=== PATIENT | male | born 1985 | race Caucasian/White ===

== ENCOUNTER 2017-07-29 08:32 | Emergency (ER) | payer OTHER ==
[~2017-07-29] VITALS: Ht 177.8 cm; Wt 74.0 kg
[~2017-07-29 08:32] MED LIST: CLAR10TA7 PO; EPIP0.3I IM; FISH100020 PO; MEDR4PAK3 PO; MULT1TAB46 PO
[2017-07-29 08:37] VITALS: BP 149/74; PULSE 71; RESP 16; TEMP 97.3; O2SAT 99
[2017-07-29] MEDS ORDERED: FEXO1TAB97 PO (08:50)
[2017-07-29] MEDS ORDERED: FAMOTIDINE 20 MG/2 ML VIAL IV PUSH STA (08:53)
[2017-07-29] MEDS ORDERED: SODIUM CHLOR 0.9% 1000 ML INJ 1,000 ML IV ONE (08:53)
[2017-07-29 08:59] VITALS: O2SAT 98
[2017-07-29] MEDS ORDERED: SODIUM CHLORIDE 0.9% FLUSH 10 ML FLUSH IVF PRN (09:00)
[2017-07-29] MEDS ORDERED: ONDANSETRON HCL 4 MG/2 ML VIAL IV PUSH ONE (09:00)
--- NOTE | 2017-07-29 09:08 | PD ---
HPI Chief Complaint: GI Complaint Time Seen by Provider: 08:41 Travel History International Travel<30 days: No Contact w/Intl Traveler<30days: No Traveled to known affect area: No History of Present Illness HPI The patient is a 32-year-old male who presents to the emergency department for diarrhea. The patient is a 3 day history of diarrhea which she describes as loose, watery, without any visible blood. The diarrhea has been persistent for the last 3 days, he will go approximately 1-2 times per hour. He notes intermittent abdominal cramping but denies any acute abdominal pain. However, one hour prior to arrival he developed mild epigastric discomfort which is nonradiating. The patient denies any recent international travel, drinking well water, recent hospitalizations, or recent antibiotic use. The patient denies any previous history of C. difficile. The patient does state his son had similar symptoms 1 week ago where he had diarrhea for one day which resolved. He denies any nausea or vomiting. Previous abdominal surgeries include umbilical hernia repair. He denies any associated fever, chills, sweats , or cough. Symptoms are mild to moderate, there are no current alleviating or exacerbating factors. 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 PFSH Past Medical History Cancer: No Diabetes: No Diminished Hearing: No Hepatitis: No Hiatal Hernia: No Hypertension: Yes Medical other: Yes (ALLIGIC UTICARIA) Immunizations Current: No Thyroid Disease: No Tetanus Vaccination: Never Vaccinated Influenza Vaccination: No Past Surgical History Abdominal Surgery: Yes (UMBILICAL HERNIA REPAIR) Other Surgery: No Social History Alcohol Use: Yes (SOCIAL) Tobacco Use: No Substance Use: No Allergies-Medications (Allergen,Severity, Reaction): Coded Allergies: No Known Allergies (Verified , 07/29/17) Reported Meds & Prescriptions Reported Meds & Active Scripts Active Reported Elo-D 24 Hour Allergy (Fexofenadine-Pseudoephedrine ER 24 HR) 180-240 Reshma 1 Tab PO DAILY Review of Systems Except as stated in HPI: all other systems reviewed are Neg General / Constitutional: No: Fever Cardiovascular: No: Chest Pain or Discomfort Respiratory: No: Shortness of Breath Gastrointestinal: Positive: Diarrhea, Abdominal Pain (epigastric discomfort), No: Nausea, Vomiting Musculoskeletal: No: Myalgias, Arthralgias Skin: Positive Other (history of urticaria), No Rash Physical Exam Narrative GENERAL: Awake, alert, pleasant 32-year-old male who appears his stated age and is in no acute respiratory distress. SKIN: Focused skin assessment warm/dry. HEAD: Atraumatic. Normocephalic. EYES: Pupils equal and round. No scleral icterus. No injection or drainage. ENT: No nasal bleeding or discharge. Mucous membranes pink and moist. NECK: Trachea midline. No JVD. CARDIOVASCULAR: Regular rate and rhythm. No murmur appreciated. RESPIRATORY: No accessory muscle use. Clear to auscultation. Breath sounds equal bilaterally. GASTROINTESTINAL: Abdomen soft, minimal epigastric tenderness, no rebound tenderness, guarding, rigidity. No left lower quadrant tenderness. MUSCULOSKELETAL: No obvious deformities. No clubbing. No cyanosis. No edema. NEUROLOGICAL: Awake and alert. No obvious cranial nerve deficits. Motor grossly within normal limits. Normal speech. PSYCHIATRIC: Appropriate mood and affect; insight and judgment normal. Data Data Last Documented VS Vital Signs Date Time Temp Pulse Resp B/P (MAP) Pulse Ox O2 Delivery O2 Flow Rate FiO2 07/29/17 08:59 98 Room Air 07/29/17 08:37 97.3 71 16 149/74 (99) Orders Orders Complete Blood Count With Diff (07/29/17 08:53) Comprehensive Metabolic Panel (07/29/17 08:53) Lipase (07/29/17 08:53) Iv Access Insert/Monitor (07/29/17 08:53) Ecg Monitoring (07/29/17 08:53) Oximetry (07/29/17 08:53) Ondansetron Inj (Zofran Inj) (07/29/17 09:00) Sodium Chlor 0.9% 1000 Ml Inj (Ns 1000 M (07/29/17 08:53) Sodium Chloride 0.9% Flush (Ns Flush) (07/29/17 09:00) C Diff Toxin Pcr (07/29/17 08:53) Famotidine Inj (Pepcid Inj) (07/29/17 08:53) Chest, Single Ap (07/29/17 ) Labs Laboratory Tests Test 07/29/17 09:15 White Blood Count 11.6 TH/MM3 Red Blood Count 5.56 MIL/MM3 Hemoglobin 15.5 GM/DL Hematocrit 46.7 % Mean Corpuscular Volume 84.0 FL Mean Corpuscular Hemoglobin 27.9 PG Mean Corpuscular Hemoglobin Concent 33.2 % Red Cell Distribution Width 12.6 % Platelet Count 231 TH/MM3 Mean Platelet Volume 8.0 FL Neutrophils (%) (Auto) 79.4 % Lymphocytes (%) (Auto) 10.3 % Monocytes (%) (Auto) 7.6 % Eosinophils (%) (Auto) 1.5 % Basophils (%) (Auto) 1.2 % Neutrophils # (Auto) 9.2 TH/MM3 Lymphocytes # (Auto) 1.2 TH/MM3 Monocytes # (Auto) 0.9 TH/MM3 Eosinophils # (Auto) 0.2 TH/MM3 Basophils # (Auto) 0.1 TH/MM3 CBC Comment DIFF FINAL Differential Comment Blood Urea Nitrogen 9 MG/DL Creatinine 0.92 MG/DL Random Glucose 88 MG/DL Total Protein 7.6 GM/DL Albumin 3.8 GM/DL Calcium Level 8.9 MG/DL Alkaline Phosphatase 90 U/L Aspartate Amino Transf (AST/SGOT) 24 U/L Alanine Aminotransferase (ALT/SGPT) 25 U/L Total Bilirubin 0.5 MG/DL Sodium Level 135 MEQ/L Potassium Level 3.8 MEQ/L Chloride Level 101 MEQ/L Carbon Dioxide Level 26.3 MEQ/L Anion Gap 8 MEQ/L Estimat Glomerular Filtration Rate 95 ML/MIN Lipase 117 U/L MDM Medical Decision Making Medical Screen Exam Complete: Yes Emergency Medical Condition: Yes Medical Record Reviewed: Yes Interpretation(s) Chest x-ray reveals no acute cardiopulmonary findings Laboratory Tests Test 07/29/17 09:15 White Blood Count 11.6 TH/MM3 Red Blood Count 5.56 MIL/MM3 Hemoglobin 15.5 GM/DL Hematocrit 46.7 % Mean Corpuscular Volume 84.0 FL Mean Corpuscular Hemoglobin 27.9 PG Mean Corpuscular Hemoglobin Concent 33.2 % Red Cell Distribution Width 12.6 % Platelet Count 231 TH/MM3 Mean Platelet Volume 8.0 FL Neutrophils (%) (Auto) 79.4 % Lymphocytes (%) (Auto) 10.3 % Monocytes (%) (Auto) 7.6 % Eosinophils (%) (Auto) 1.5 % Basophils (%) (Auto) 1.2 % Neutrophils # (Auto) 9.2 TH/MM3 Lymphocytes # (Auto) 1.2 TH/MM3 Monocytes # (Auto) 0.9 TH/MM3 Eosinophils # (Auto) 0.2 TH/MM3 Basophils # (Auto) 0.1 TH/MM3 CBC Comment DIFF FINAL Differential Comment Blood Urea Nitrogen 9 MG/DL Creatinine 0.92 MG/DL Random Glucose 88 MG/DL Total Protein 7.6 GM/DL Albumin 3.8 GM/DL Calcium Level 8.9 MG/DL Alkaline Phosphatase 90 U/L Aspartate Amino Transf (AST/SGOT) 24 U/L Alanine Aminotransferase (ALT/SGPT) 25 U/L Total Bilirubin 0.5 MG/DL Sodium Level 135 MEQ/L Potassium Level 3.8 MEQ/L Chloride Level 101 MEQ/L Carbon Dioxide Level 26.3 MEQ/L Anion Gap 8 MEQ/L Estimat Glomerular Filtration Rate 95 ML/MIN Lipase 117 U/L Differential Diagnosis Differential diagnosis includes enteritis, colitis, gastroenteritis, infectious diarrhea, inflammatory diarrhea, IBD, IBS, C. difficile, viral syndrome, food poisoning. Narrative Course IV was established, labs are drawn and sent, and the patient was placed on cardiac telemetry monitoring and continuous pulse oximetry monitoring. The patient was administered Zofran, Pepcid, and IV fluids. C. difficile PCR was ordered. However, the patient had no further diarrhea in the emergency department therefore, the C. difficile PCR was not sent to lab. The patient had no further diarrhea in the emergency department. LFTs and lipase are unremarkable, no evidence of end organ damage or hepatitis. The patient is advised to have a regular diet, plenty fluids to stay hydrated, to follow-up with his primary physician. Return if symptoms worsen or progress. Diagnosis Primary Impression: Diarrhea Qualified Codes: R19.7 - Diarrhea, unspecified Patient Instructions: General Instructions Additional Instructions: Medications as directed. Follow-up with your primary physician. Return if symptoms worsen or progress. Disposition: 01 DISCHARGE HOME Condition: Stable Dwight Villalta MD Jul 29, 2017 09:08
[2017-07-29 09:24] LABS: AUTOMATED NEUTROPHIL # 9.2 TH/MM3 (1.8-7.7); BASOPHIL # 0.1 TH/MM3 (0-0.2); BASOPHIL % 1.2 % (0.0-2.0); EOSINOPHIL # 0.2 TH/MM3 (0-0.4); EOSINOPHIL % 1.5 % (0.0-4.0); HEMATOCRIT 46.7 % (39.0-51.0); LYMPH % 10.3 % (9.0-44.0); LYMPHOCYTE # 1.2 TH/MM3 (1.0-4.8); MEAN CORPUSCULAR HEMOGLOBIN 27.9 PG (27.0-34.0); MEAN CORPUSCULAR HGB CONC 33.2 % (32.0-36.0); MONO % 7.6 % (0.0-8.0); NEUT % 79.4 % (16.0-70.0); PLATELET COUNT 231 TH/MM3 (150-450); RED BLOOD COUNT 5.56 MIL/MM3 (4.50-5.90); RED CELL DISTRIBUTION WIDTH 12.6 % (11.6-17.2); WHITE BLOOD COUNT 11.6 TH/MM3 (4.0-11.0)
[2017-07-29 09:36] LABS: HEMO FLAGS DIFF FINAL
--- NOTE | 2017-07-29 09:43 | RADRPT ---
EXAM DATE/TIME: 07/29/2017 09:04 [facility] COMPARISON: CHEST PA & LAT, July 11, 2014, 20:56. INDICATIONS : Chest pain. MEDICAL HISTORY : None. SURGICAL HISTORY : None. ENCOUNTER: Initial ACUITY: 1 day PAIN SCORE: 4/10 LOCATION: middle chest FINDINGS: A single view of the chest demonstrates the lungs to be symmetrically aerated without evidence of mas s, infiltrate or effusion. The cardiomediastinal contours are unremarkable. Osseous structures are intact. CONCLUSION: 1. No acute cardiopulmonary findings. Jose F Parada MD on July 29, 2017 at 9:41 Board Certified Radiologist. This report was verified electronically.
[2017-07-29 09:57] LABS: BICARBONATE 26.3 MEQ/L (21.0-32.0)
[2017-07-29 10:00] LABS: ALT (GPT) 25 U/L (12-78); ANION GAP 8 MEQ/L (5-15); CHLORIDE 101 MEQ/L (98-107); GLOMERULAR FILTRATION RATE 95 ML/MIN (>89); POTASSIUM 3.8 MEQ/L (3.5-5.1); SODIUM (NA) 135 MEQ/L (136-145)
[2017-07-29 10:01] LABS: TOTAL BILIRUBIN ADULT 0.5 MG/DL (0.2-1.0)
[2017-07-29 10:02] LABS: ALKALINE PHOSPHATASE 90 U/L (45-117)
[2017-07-29 10:07] LABS: AST (GOT) 24 U/L (15-37); BLOOD UREA NITROGEN 9 MG/DL (7-18)
[2017-07-29] MEDS ORDERED: ZOFR4TAB3 SL (10:21)
[2017-07-29 10:29] VITALS: BP 144/69
== END 2017-07-29 10:31 | disposition home or self-care (01) ==
LOC: PHED 08:32
DX: R19.7 Diarrhea, unspecified (principal); I10 Essential (primary) hypertension
CPT/HCPCS: 71010; 80053; 83690; 85025; 96361; 96374; 96375; 99284; J2405; J7030